=== PATIENT | female | born 1930 | race Caucasian/White ===

== ENCOUNTER 2019-02-22 10:07 | Inpatient (IN) | payer MEDICARE ==
[2019-02-22] VITALS (19 sets, daily range): BP systolic 112–148; BP diastolic 52–79
[~2019-02-22] VITALS: Ht 170.2 cm; Wt 54.6 kg
--- NOTE | 2019-02-22 10:23 | PHYS DOC ---
Adult General Chief Complaint Chief Complaint: SLURRED SPEECH HPI HPI Patient is an 88-year-old female who presents via POV with report of acute onset stroke symptoms at home. 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 They were unable to identify if there were any other strokelike symptoms. At this point patient was brought immediately to the emergency room. Symptom onset was approximately 15 minutes pr ior to her arrival to the emergency room. Patient reportedly has no history of stroke in the past. She has no history of hemorrhagic stroke, recent surgery or gastrointestinal bleeding.[] Review of Systems Review of Systems Constitutional: Denies fever or chills [] Respiratory: Denies cough or shortness of breath [] Cardiovascular: No additional information not addressed in HPI [] Integument: Denies rash or skin lesions [] Neurologic: Positive right sided facial droop and slurred speech [] All other systems were reviewed and found to be within normal limits, except as documented in this note. Current Medications Current Medications Current Medications Medications (Trade) Dose Ordered Sig/Ross Start Time Stop Time Status Last Admin Dose Admin Alteplase, Recombinant 47.8 ml @ 47.8 mls/hr Q1H 02/22/19 11:45 02/22/19 12:44 02/22/19 12:00 47.8 MLS/HR Info (CONTRAST GIVEN -- Rx MONITORING) 1 each PRN DAILY PRN 02/22/19 12:00 02/24/19 11:59 Iohexol (Omnipaque 350 Mg/ml) 60 ml 1X ONCE 02/22/19 12:00 02/22/19 12:01 DC Labetalol HCl (Normodyne Iv Push) 10 mg PRN Q10MIN PRN 02/22/19 11:45 Nicardipine HCl 50 mg/Sodium Chloride 250 ml @ 25 mls/hr CONT PRN PRN 02/22/19 11:45 Sodium Chloride 50 ml @ 0 mls/hr 1X ONCE 02/22/19 11:45 02/22/19 11:46 DC Allergies Allergies Allergies Coded Allergies Type Severity Reaction Last Updated Verified Penicillins Allergy Intermediate 02/22/19 Yes Physical Exam Physical Exam Constitutional: Well developed, well nourished, no acute distress, non-toxic appearance. [] HENT: Normocephalic, atraumatic, bilateral external ears normal, oropharynx moist, no oral exudates, nose normal. [] Eyes: PERRLA, EOMI, conjunctiva normal, no discharge. [] Neck: Normal range of motion, no tenderness, supple, no stridor. [] Cardiovascular: Regular rate and rhythm[] Lungs & Thorax: Bilateral breath sounds clear to auscultation [] Abdomen: Bowel sounds normal, soft, no tenderness. [] Skin: Warm, dry, no erythema, no rash. [] Extremities: No tenderness, no cyanosis, no clubbing, ROM intact, no edema. [] Neurologic: Awake and alert, renal nerves II through XII are reviewed with right sided facial nerve deficit with sparing of forehead. Speech significantly slurred and dysarthric. [] Current Patient Data Vital Signs Vital Signs Date Time Temp Pulse Resp B/P (MAP) Pulse Ox O2 Delivery O2 Flow Rate FiO2 02/22/19 11:26 66 21 110/56 (74) 97 Room Air 02/22/19 10:07 97.7 97.7 Lab Values Laboratory Tests Test 02/22/19 10:12 02/22/19 10:28 02/22/19 10:30 Glucose (Fingerstick) 97 mg/dL (70-99) POC Hemoglobin 11.9 g/dL (12-15) L POC Hematocrit 35 % (36-40) L POC Sodium 139 mmol/L (135-145) POC Potassium 3.8 mmol/L (3.5-5.0) POC Chloride 105 mmol/L (98-110) POC Total CO2 25 mmol/L (23-32) Anion Gap 14 mmol/L (6-14) 5 (6-14) L POC Blood Urea Nitrogen 22 mg/dL (8-26) POC Creatinine 1.2 mg/dL (0.5-1.4) Glucose Level 95 mg/dL (70-99) 101 mg/dL (70-99) H POC Ionized Calcium ([place]na) 1.26 mmol/L (1.13-1.32) White Blood Count 5.3 x10^3/uL (4.0-11.0) Red Blood Count 3.83 x10^6/uL (3.50-5.40) Hemoglobin 12.3 g/dL (12.0-15.5) Hematocrit 36.2 % (36.0-47.0) Mean Corpuscular Volume 95 fL (79-100) Mean Corpuscular Hemoglobin 32 pg (25-35) Mean Corpuscular Hemoglobin Concent 34 g/dL (31-37) Red Cell Distribution Width 13.6 % (11.5-14.5) Platelet Count 141 x10^3/uL (140-400) Prothrombin Time 12.9 SEC (11.7-14.0) Prothrombin Time INR 1.0 (0.8-1.1) Activated Partial Thromboplast Time 26 SEC (24-38) Sodium Level 140 mmol/L (136-145) Potassium Level 3.9 mmol/L (3.5-5.1) Chloride Level 108 mmol/L (98-107) H Carbon Dioxide Level 27 mmol/L (21-32) Blood Urea Nitrogen 21 mg/dL (7-20) H Creatinine 1.3 mg/dL (0.6-1.0) H Estimated GFR (Cockcroft-Gault) 38.8 Calcium Level 9.1 mg/dL (8.5-10.1) Troponin I Quantitative 0.023 ng/mL (0.000-0.055) Laboratory Tests 02/22/19 10:30 Laboratory Tests 02/22/19 10:28 02/22/19 10:30 EKG EKG [] Radiology/Procedures Radiology/Procedures [] Impressions: PROCEDURE: CT CODE STROKE HEAD WO EXAM: Head CT without contrast. HISTORY: Slurred speech. Code stroke. TECHNIQUE: Computed tomographic images of the head were obtained without contrast. *One or more of the following individualized dose reduction techniques were utilized for this examination: 1. Automated exposure control. 2. Adjustment of the mA and/or kV according to patient size. 3. Use of iterative reconstruction technique. COMPARISON: None. FINDINGS: There is no intracranial hemorrhage. There is no mass effect or midline shift. There is moderate ventricular enlargement likely due to cerebral atrophy. There is nonspecific decreased attenuation within the cerebral white matter. This is most commonly due to chronic small vessel disease. The visualized portions the orbits, paranasal sinuses and mastoid air cells are grossly unremarkable. No suspicious calvarial lesion is seen. There is a suspected partially ossified or calcified sebaceous cyst within the right scalp. IMPRESSION: 1. Moderate ventricular enlargement, likely compensatory in the setting of cerebral atrophy. This is not clearly greater than expected for cerebral volume to suggest normal pressure hydrocephalus. 2. Decreased attenuation within the cerebral white matter, likely due to chronic small vessel disease. 3. Note is made that MRI is more sensitive for acute infarction. Findings were discussed with Dr. Antonio in the ED at 1020 hours on 02/22/2019 Electronically signed by: Aaliyah Banks MD (02/22/2019 10:24 AM) [facility] PROCEDURE: CT ANGIOGRAPHY HEAD AND NECK ADDENDUM Addendum: Findings were discussed with Dr. Herr in the ED at 1200 hours on 02/22/2019. Electronically signed by: Aaliyah Banks MD (02/22/2019 12:09 PM) [facility] DICTATED AND SIGNED BY: AALIYAH BANKS MD DATE: 02/22/19 1209 CC: QASIM GRANT MD; TETO HERR Jr. DO ~ EXAM: CT angiogram of the head and neck with intravenous contrast. HISTORY: Cerebral infarction. TECHNIQUE: Computed tomographic images of the head and neck were obtained following the administration of 60 cc Omnipaque 350 intravenous contrast. Three-dimensional maximum intensity projection images were obtained. *One or more of the following individualized dose reduction techniques were utilized for this examination: 1. Automated exposure control. 2. Adjustment of the mA and/or kV according to patient size. 3. Use of iterative reconstruction technique. COMPARISON: Noncontrast head CT obtained on the same date. FINDINGS: There is a large amount of venous contamination predominantly involving the thoracic inlet and left neck, limiting evaluation of the arterial structures in these locations. There is a standard aortic arch branching pattern. There is partially calcified atherosclerotic plaque involving the aorta and proximal aortic arch great vessels. No hemodynamically significant stenosis is seen within the origins and proximal aspects of these vessels. There is suspected calcified atherosclerotic plaque at the origin of the right vertebral artery, resulting in approximate 50 percent stenosis. There is partially calcified atherosclerotic plaque involving the common carotid arteries, carotid bulbs and proximal internal and external carotid arteries. This is associated with less than 25 percent stenosis. There is similar partially calcified atherosclerotic plaque within the cavernous internal carotid arteries with less than 25 percent stenosis. The anterior commuting artery is patent. The anterior, middle and posterior cerebral arteries are patent. There is a patent right posterior commuting indicating artery and suspected absent left posterior communicating artery. The left vertebral artery is slightly dominant. No hemodynamically significant stenosis is seen involving the vertebral or basilar arteries. There is no pneumothorax. There is posterior dependent atelectasis involving both lungs. The airways midline and widely patent. The thyroid and parotid and submandibular glands are unremarkable. There is cerebral volume loss with compensatory enlargement of the ventricles. There are subtle areas of hypodensity within the cerebral white matter, likely due to chronic small vessel disease. There is evidence of lens surgery. There are degenerative changes throughout the cervical spine. This is associated with mild to moderate bilateral foraminal stenosis at C3-C4, mild right foraminal stenosis at C4-C5, and moderate left foraminal stenosis at C5-C6. IMPRESSION: 1. Significantly limited exam due to timing of contrast administration and venous contamination at the thoracic inlet and throughout the left neck. No severe stenosis is seen. There is mild atherosclerotic plaque involving the origin of the right vertebral artery and carotid bifurcations and cavernous internal carotid arteries, described above. 2. Decreased attenuation within the cerebral white matter, a finding which can be seen with chronic small vessel disease. Note is made that MRI is more sensitive for acute infarction. 3. Moderate ventricular enlargement, likely due to cerebral atrophy. This is not clearly within limits to suggest normal pressure hydrocephalus. PQRS Compliance Statement - Stenosis calculations for CT, MR and conventional angiography are based upon measurement of the distal ICA diameter in accordance with the NASCET methodology. Stenosis calculations for carotid ultrasound studies are derived from validated velocity criteria which are known to correlate with the NASCET methodology. Electronically signed by: Aaliyah Banks MD (02/22/2019 12:03 PM) [facility] DICTATED and SIGNED BY: AALIYAH BANKS MD DATE: 02/22/19 1203 Course & Med Decision Making Course & Med Decision Making Pertinent Labs and Imaging studies reviewed. (See chart for details) Patient moved to room upon arrival was evaluated by your medical staff after which an IV was established and blood work drawn. Those stroke was called on patient and patient brought down for code stroke CT head. Initial CT returned unremarkable. NIH stroke scale was completed upon patient arrival back to ER and was found before. Around timing of patient's reading of CT, patient noted to be improving in her speech and facial droop. Approximately 30 minutes later, however, symptoms again worsened and repeat NIH stroke scale was completed with reading of 11. Patient was transferred down for CT angiogram of head and neck at this point. Dr. Henderson was consulted for neurology and she is recommending tPA for this patient. TPA initiated as per protocol and after discussing patient with Dr. Barton, who is on-call for patient's primary care provider, patient admitted to ICU. A total of 40 minutes of critical care time has been spent on this patient exclusive of separately billable procedures and includes direct [id number] time with this patient, discussion of patient's case with consultants and family, ordering and reviewing of both radiologic and laboratory studies, and finally on documentation of this patient's medical record. Dragon Disclaimer Dragon Disclaimer This electronic medical record was generated, in whole or in part, using a voice recognition dictation system. Departure Departure Impression: Primary Impression: CVA (cerebral vascular accident) Disposition: 09 ADMITTED INPATIENT Admitting Physician: Richard Barton Condition: GUARDED Problem Qualifiers Primary Impression: CVA (cerebral vascular accident) CVA mechanism: unspecified Qualified Codes: I63.9 - Cerebral infarction, unspecified TETO HERR Jr. DO Feb 22, 2019 10:23
--- NOTE | 2019-02-22 10:27 | RAD ---
EXAM: Head CT without contrast. HISTORY: Slurred speech. Code stroke. TECHNIQUE: Computed tomographic images of the head were obtained without contrast. *One or more of the following individualized dose reduction techniques were utilized for this examination: 1. Automated exposure control. 2. Adjustment of the mA and/or kV according to patient size. 3. Use of iterative reconstruction technique. COMPARISON: None. FINDINGS: There is no intracranial hemorrhage. There is no mass effect or midline shift. There is moderate ventricular enlargement likely due to cerebral atrophy. There is nonspecific decreased attenuation within the cerebral white matter. This is most commonly due to chronic small vessel disease. The visualized portions the orbits, paranasal sinuses and mastoid air cells are grossly unremarkable. No suspicious calvarial lesion is seen. There is a suspected partially ossified or calcified sebaceous cyst within the right scalp. IMPRESSION: 1. Moderate ventricular enlargement, likely compensatory in the setting of cerebral atrophy. This is not clearly greater than expected for cerebral volume to suggest normal pressure hydrocephalus. 2. Decreased attenuation within the cerebral white matter, likely due to chronic small vessel disease. 3. Note is made that MRI is more sensitive for acute infarction. Findings were discussed with Dr. Antonio in the ED at 1020 hours on 02/22/2019 Electronically signed by: Aaliyah Gray MD (02/22/2019 10:24 AM) [facility]
[2019-02-22 10:35] LABS: CREATININE ISTAT 1.2 mg/dL (0.5-1.4); HEMOGLOBIN ISTAT 11.9 g/dL (12-15); ION CA ISTAT 1.26 mmol/L (1.13-1.32); POTASSIUM ISTAT 3.8 mmol/L (3.5-5.0)
[2019-02-22 10:39] LABS: HEMATOCRIT 36.2 % (36.0-47.0); HEMOGLOBIN 12.3 g/dL (12.0-15.5); RED BLOOD COUNT 3.83 x10^6/uL (3.50-5.40); RED CELL DISTRIBUTION WIDTH 13.6 % (11.5-14.5); WHITE BLOOD COUNT 5.3 x10^3/uL (4.0-11.0)
[2019-02-22 10:47] LABS: PROTHROMBIN TIME PATIENT 12.9 SEC (11.7-14.0)
[2019-02-22 10:50] LABS: CALCIUM 9.1 mg/dL (8.5-10.1); CREATININE 1.3 mg/dL (0.6-1.0); GFR 38.8; POTASSIUM 3.9 mmol/L (3.5-5.1)
[2019-02-22] MEDS ORDERED: IV NORMAL SALINE 1000ML BAG 1,000 ML IV ONE (11:15)
--- NOTE | 2019-02-22 11:23 | EKG ---
[facility] [address] [place] [address] Test Date: 2019-02-22 Test Time: 10:28:00 Pat Name: DIMA ROBLES Department: Room: Gender: F Forming Fixer: : [id number] Requested By: SHEN SOTOMAYOR Order Number: [id number] Reading MD: Moe Weinberg MD Measurements Intervals [place] Rate: 78 P: IA: QRS: -4 QRSD: 90 T: 31 QT: 400 QTc: 459 Interpretive Statements SR NON-SPECIFIC ST/T CHANGES Electronically Signed On 03-03-2019 10:29:46 CDT by Moe Weinberg MD
[2019-02-22] MEDS ORDERED: ALTEPLASE IV ONE (11:45)
[2019-02-22] MEDS ORDERED: LABETALOL 20 MG/4 ML DISP.SYRIN. IVP PRN (11:45)
[2019-02-22] MEDS ORDERED: ALTEPLASE IV SCH (11:45)
[2019-02-22] MEDS ORDERED: IV NORMAL SALINE 50ML 50 ML IV ONE (11:45)
[2019-02-22] MEDS ORDERED: CONTRAST GIVEN. MC PRN (12:00)
[2019-02-22] MEDS ORDERED: IOHEXOL 350 MG/ML 100 ML VIAL. IV ONE (12:00)
--- NOTE | 2019-02-22 12:06 | RAD ---
EXAM: CT angiogram of the head and neck with intravenous contrast. HISTORY: Cerebral infarction. TECHNIQUE: Computed tomographic images of the head and neck were obtained following the administration of 60 cc Omnipaque 350 intravenous contrast. Three-dimensional maximum intensity projection images were obtained. *One or more of the following individualized dose reduction techniques were utilized for this examination: 1. Automated exposure control. 2. Adjustment of the mA and/or kV according to patient size. 3. Use of iterative reconstruction technique. COMPARISON: Noncontrast head CT obtained on the same date. FINDINGS: There is a large amount of venous contamination predominantly involving the thoracic inlet and left neck, limiting evaluation of the arterial structures in these locations. There is a standard aortic arch branching pattern. There is partially calcified atherosclerotic plaque involving the aorta and proximal aortic arch great vessels. No hemodynamically significant stenosis is seen within the origins and proximal aspects of these vessels. There is suspected calcified atherosclerotic plaque at the origin of the right vertebral artery, resulting in approximate 50 percent stenosis. There is partially calcified atherosclerotic plaque involving the common carotid arteries, carotid bulbs and proximal internal and external carotid arteries. This is associated with less than 25 percent stenosis. There is similar partially calcified atherosclerotic plaque within the cavernous internal carotid arteries with less than 25 percent stenosis. The anterior commuting artery is patent. The anterior, middle and posterior cerebral arteries are patent. There is a patent right posterior commuting indicating artery and suspected absent left posterior communicating artery. The left vertebral artery is slightly dominant. No hemodynamically significant stenosis is seen involving the vertebral or basilar arteries. There is no pneumothorax. There is posterior dependent atelectasis involving both lungs. The airways midline and widely patent. The thyroid and parotid and submandibular glands are unremarkable. There is cerebral volume loss with compensatory enlargement of the ventricles. There are subtle areas of hypodensity within the cerebral white matter, likely due to chronic small vessel disease. There is evidence of lens surgery. There are degenerative changes throughout the cervical spine. This is associated with mild to moderate bilateral foraminal stenosis at C3-C4, mild right foraminal stenosis at C4-C5, and moderate left foraminal stenosis at C5-C6. IMPRESSION: 1. Significantly limited exam due to timing of contrast administration and venous contamination at the thoracic inlet and throughout the left neck. No severe stenosis is seen. There is mild atherosclerotic plaque involving the origin of the right vertebral artery and carotid bifurcations and cavernous internal carotid arteries, described above. 2. Decreased attenuation within the cerebral white matter, a finding which can be seen with chronic small vessel disease. Note is made that MRI is more sensitive for acute infarction. 3. Moderate ventricular enlargement, likely due to cerebral atrophy. This is not clearly within limits to suggest normal pressure hydrocephalus. PQRS Compliance Statement - Stenosis calculations for CT, MR and conventional angiography are based upon measurement of the distal ICA diameter in accordance with the NASCET methodology. Stenosis calculations for carotid ultrasound studies are derived from validated velocity criteria which are known to correlate with the NASCET methodology. Electronically signed by: Aaliyah Gray MD (02/22/2019 12:03 PM) [facility]
[2019-02-22] MEDS: IV NORMAL SALINE 1000ML BAG 1,000 ML IV SCH ×2 (12:18→19:47)
--- NOTE | 2019-02-22 15:17 | RAD ---
EXAM: Carotid Doppler sonogram. HISTORY: Cerebral infarction. TECHNIQUE: Santana scale and color Doppler sonographic evaluation of the neck with spectral waveform analysis was performed and static images are submitted for review. FINDINGS: There is mild atherosclerotic plaque within the left greater than right carotid bifurcations. The peak systolic velocity within the right common carotid artery is 74 cm/sec. The peak systolic velocity within the right internal carotid artery is 57 cm/sec and the end diastolic velocity within the right internal carotid artery is 18 cm/sec. The right ICA/CCA ratio is 0.82. The peak systolic velocity within the left common carotid artery is 88 cm/sec. The peak systolic velocity within the left internal carotid artery is 71 cm/sec and the end diastolic velocity within the left internal carotid artery is 16 cm/sec. The left ICA/CCA ratio is 0.86. There is normal antegrade flow within both vertebral arteries. IMPRESSION: No Doppler evidence of hemodynamically significant stenosis within the carotid or vertebral arteries. PQRS Compliance Statement - Stenosis calculations for CT, MR and conventional angiography are based upon measurement of the distal ICA diameter in accordance with the NASCET methodology. Stenosis calculations for carotid ultrasound studies are derived from validated velocity criteria which are known to correlate with the NASCET methodology. Electronically signed by: Aaliyah Gray MD (02/22/2019 3:14 PM) [facility]
--- NOTE | 2019-02-22 15:59 | PDOC2 ---
NEUROLOGY CONSULT Date of Admission Date of Admission DATE: 02/22/19 TIME: 15:45 Reason for Consult Reason for Consult: IMPRESSION: Acute CVA syndrome. Right side facial drooping. Slurred speech. HTN. Cognitive impairment. RECOMMENDATIONS/PLAN: She received TPA on 02/22/19. ASA 24 hours after TPA. Lab: see orders. MRI brain. HISTORY OF THE PRESENT ILLNESS: This is an 88-year-old female who presents via POV with report of acute onset stroke symptoms at home. Per ER, the patient's son reported that patient has history of valve sinus disease and was behaving normally this morning, ate breakfast then shortly after that, family noted that she had a right-sided facial droop and speech was significantly slurred. They were unable to identify if there were any other stroke like symptoms. Her symptom onset was approximately 15 minutes prior to her arrival to the emergency room but her symptoms significantly improved after got here. HCT was performed which did not show acute abnormal changes. However, her symptoms recurred, so TPA was provided after all criteria met and consent obtained. PAST MEDICAL HISTORY: HTN? PAST SURGERY HISTORY: No major surgery recently. ALLERGY: Unknown MEDICATIONS: Refer to [facility] FAMILY HISTORY: Non contributory. SOCIAL HISTORY: Lives with her son at home. Denies smoking, drinking, and illicit drug use. REVIEW OF SYSTEMS: Constitutional: No malnutrition, weight loss, cachexia. Head: No traumatic brain or head injury. Skin: No edema, or rash. Ear: No infection. Eyes: No vision loss or color blindness. Nose: No bleeding or purulent discharges. Hearing: Hearing decrease. Neck: No injury. Breast: No history of cancer, masses,or discharges. Cardiac: HTN. Pulmonary: No COPD. GI: No GI ulcer, GI bleeding. Urinary/genital: UTI. Endocrinologic: No cousin face, craniofacial dysmorphism. Skeletomuscular: No muscular atrophy, deformity. Neurological: see HP. Psychiatric: Denies drug use/abuse. Otherwise, not [id number] review of systems. PHYSICAL EXAMINATION: General appearance is in acute distress. HEENT: Normocephalic and nontraumatic. Eyes, nose, ears, and throat are unre markable. Neck is supple. No lymphadenopathy. No bruits are heard over the carotid artery. No crepitus. Cardiovascular: S1, S2, regular rate and rhythm. Pulmonary: Clear to auscultation bilaterally. Abdomen: Bowel sounds are positive. Abdomen is soft, nontender, and nondistended. Extremities: No rash, lesions, or edema. No restriction of range of motion NEUROLOGICAL EXAMINATION: Alert Not oriented to time, place but knew person. Her speech is within normal. No aphasia or slurred speech at the time of exam, but has partial naming difficulties. PERRL. EOMI. CN: no focal findings. Muscle tone: within normal. Muscle strength: 5 DTR: 2+ Plantar reflex: Flexor response bilaterally Gait: not examined in bed. Sensory exam: no abnormal findings. No cerebellar signs elicited. F-T-N test fine. Current Medications Current Medications Current Medications Sodium Chloride 1,000 ml @ 125 mls/hr 1X ONCE IV Last administered on 02/22/19at 11:25; Start 02/22/19 at 11:15; Stop 02/22/19 at 19:14 Alteplase, Recombinant 5.3 ml @ 318 mls/hr 1X ONCE IV Last administered on 02/22/19at 11:58; Start 02/22/19 at 11:45; Stop 02/22/19 at 11:46; Status DC Alteplase, Recombinant 47.8 ml @ 47.8 mls/hr Q1H IV Last administered on 02/22/19at 12:00; Start 02/22/19 at 11:45; Stop 02/22/19 at 12:44; Status DC Sodium Chloride 50 ml @ 0 mls/hr 1X ONCE IV Last administered on 02/22/19at 12:58; Start 02/22/19 at 11:45; Stop 02/22/19 at 11:46; Status DC Labetalol HCl (Normodyne Iv Push) 10 mg PRN Q10MIN PRN IVP HYPERTENSION; Start 02/22/19 at 11:45 Nicardipine HCl 50 mg/Sodium Chloride 250 ml @ 25 mls/hr CONT PRN PRN IV HYPERTENSION; Start 02/22/19 at 11:45 Iohexol (Omnipaque 350 Mg/ml) 60 ml 1X ONCE IV ; Start 02/22/19 at 12:00; Stop 02/22/19 at 12:01; Status DC Info (CONTRAST GIVEN -- Rx MONITORING) 1 each PRN DAILY PRN MC SEE COMMENTS; Start 02/22/19 at 12:00; Stop 02/24/19 at 11:59 Sodium Chloride 1,000 ml @ 100 mls/hr Q10H IV Last administered on 02/22/19at 12:18; Start 02/22/19 at 12:18; Stop 02/23/19 at 12:17 Allergies Allergies: Allergies Coded Allergies Type Severity Reaction Last Updated Verified Penicillins Allergy Intermediate 02/22/19 Yes ROS Review of System The patient denies any associated fevers, chills, headache, ear pain, rhinorrhea, sore throat, stiff neck, productive cough, chest pain, shortness of breath, back or flank pain, abdominal pain, nausea, vomiting, diarrhea, constipation, dysuria, rash, numbness, weakness, tingling, incontinence, difficulty ambulating, or diaphoresis. Physical Exam Physical Exam General: Well developed, well nourished, no acute distress, well appearing HEENT: Pupils equally round and reactive to light, EOMI, no discharge, normal conjunctiva Neck: Supple, no nuchal rigidity, no JVD, trachea midline, no tenderness Cardiac: RRR, no murmurs, no gallops, no rubs Chest/Lungs: CTAB, no wheeze, no rhonchi, no crackles Abdomen: soft, non-distended, no guarding, no peritoneal signs, non-tender Back: No tenderness Extremities: no edema, pulses intact, non-tender,capillary refill <3 sec bilateral upper and lower extremities, Neuro: Alert and oriented x 4, no focal deficits, normal speech Vitals Vitals: Vital Signs Date Time Temp Pulse Resp B/P (MAP) Pulse Ox O2 Delivery O2 Flow Rate FiO2 02/22/19 15:30 66 16 146/62 (90) 98 Room Air 02/22/19 13:45 98.2 98.2 Labs Labs Laboratory Tests Test 02/22/19 10:12 02/22/19 10:28 02/22/19 10:30 Glucose (Fingerstick) 97 mg/dL (70-99) Bedside Hemoglobin 11.9 g/dL (12-15) Bedside Hematocrit 35 % (36-40) Bedside Sodium 139 mmol/L (135-145) Bedside Potassium 3.8 mmol/L (3.5-5.0) Bedside Chloride 105 mmol/L (98-110) Bedside Total CO2 25 mmol/L (23-32) Anion Gap 14 mmol/L (6-14) 5 (6-14) Bedside Blood Urea Nitrogen 22 mg/dL (8-26) Bedside Creatinine 1.2 mg/dL (0.5-1.4) Glucose Level 95 mg/dL (70-99) 101 mg/dL (70-99) Bedside Ionized Calcium (Lorena) 1.26 mmol/L (1.13-1.32) White Blood Count 5.3 x10^3/uL (4.0-11.0) Red Blood Count 3.83 x10^6/uL (3.50-5.40) Hemoglobin 12.3 g/dL (12.0-15.5) Hematocrit 36.2 % (36.0-47.0) Mean Corpuscular Volume 95 fL (79-100) Mean Corpuscular Hemoglobin 32 pg (25-35) Mean Corpuscular Hemoglobin Concent 34 g/dL (31-37) Red Cell Distribution Width 13.6 % (11.5-14.5) Platelet Count 141 x10^3/uL (140-400) Prothrombin Time 12.9 SEC (11.7-14.0) Prothromb Time International Ratio 1.0 (0.8-1.1) Activated Partial Thromboplast Time 26 SEC (24-38) Sodium Level 140 mmol/L (136-145) Potassium Level 3.9 mmol/L (3.5-5.1) Chloride Level 108 mmol/L (98-107) Carbon Dioxide Level 27 mmol/L (21-32) Blood Urea Nitrogen 21 mg/dL (7-20) Creatinine 1.3 mg/dL (0.6-1.0) Estimated GFR (Cockcroft-Gault) 38.8 Calcium Level 9.1 mg/dL (8.5-10.1) Troponin I Quantitative 0.023 ng/mL (0.000-0.055) Thyroid Stimulating Hormone (TSH) 1.946 uIU/mL (0.358-3.74) Laboratory Tests Test 02/22/19 10:12 02/22/19 10:28 02/22/19 10:30 Glucose (Fingerstick) 97 mg/dL (70-99) Bedside Hemoglobin 11.9 g/dL (12-15) Bedside Hematocrit 35 % (36-40) Bedside Sodium 139 mmol/L (135-145) Bedside Potassium 3.8 mmol/L (3.5-5.0) Bedside Chloride 105 mmol/L (98-110) Bedside Total CO2 25 mmol/L (23-32) Anion Gap 14 mmol/L (6-14) 5 (6-14) Bedside Blood Urea Nitrogen 22 mg/dL (8-26) Bedside Creatinine 1.2 mg/dL (0.5-1.4) Glucose Level 95 mg/dL (70-99) 101 mg/dL (70-99) Bedside Ionized Calcium (Lorena) 1.26 mmol/L (1.13-1.32) White Blood Count 5.3 x10^3/uL (4.0-11.0) Red Blood Count 3.83 x10^6/uL (3.50-5.40) Hemoglobin 12.3 g/dL (12.0-15.5) Hematocrit 36.2 % (36.0-47.0) Mean Corpuscular Volume 95 fL (79-100) Mean Corpuscular Hemoglobin 32 pg (25-35) Mean Corpuscular Hemoglobin Concent 34 g/dL (31-37) Red Cell Distribution Width 13.6 % (11.5-14.5) Platelet Count 141 x10^3/uL (140-400) Prothrombin Time 12.9 SEC (11.7-14.0) Prothromb Time International Ratio 1.0 (0.8-1.1) Activated Partial Thromboplast Time 26 SEC (24-38) Sodium Level 140 mmol/L (136-145) Potassium Level 3.9 mmol/L (3.5-5.1) Chloride Level 108 mmol/L (98-107) Carbon Dioxide Level 27 mmol/L (21-32) Blood Urea Nitrogen 21 mg/dL (7-20) Creatinine 1.3 mg/dL (0.6-1.0) Estimated GFR (Cockcroft-Gault) 38.8 Calcium Level 9.1 mg/dL (8.5-10.1) Troponin I Quantitative 0.023 ng/mL (0.000-0.055) Thyroid Stimulating Hormone (TSH) 1.946 uIU/mL (0.358-3.74) ASH BARNES MD Feb 22, 2019 15:59
[2019-02-22 17:58] LABS: BILIRUBIN,URINE NEGATIVE (NEG); CLARITY,URINE CLEAR; COLOR,URINE YELLOW; NITRITE,URINE NEGATIVE (NEG); PROTEIN,URINE NEGATIVE (NEG-TRACE); UROBILINOGEN,URINE 0.2 mg/dL (0.2 mg/dL)
[2019-02-22 18:07] LABS: BACTERIA,URINE 0 /HPF (0-FEW); RBC,URINE 0 /HPF (0-2); WBC,URINE OCC /HPF (0-4)
[2019-02-23] VITALS (19 sets, daily range): BP systolic 115–164; BP diastolic 60–97
[2019-02-23 05:47] LABS: CHOLESTEROL/HDL RATIO 2.8
[2019-02-23] MEDS: IV NORMAL SALINE 1000ML BAG 1,000 ML IV SCH (06:07)
[2019-02-23] MEDS ORDERED: OMEP20CA10 PO (08:54)
[2019-02-23] MEDS ORDERED: MEMA10TA PO (08:54)
[2019-02-23] MEDS ORDERED: MELO15TA23 PO (08:54)
[2019-02-23] MEDS ORDERED: DONE5TAB7 PO (08:54)
--- NOTE | 2019-02-23 09:16 | PDOC ---
Provider Note Provider Note dictated MICKY LUNA MD Feb 23, 2019 09:16
--- NOTE | 2019-02-23 09:44 | HP ---
ADMIT DATE: 02/23/2019 CHIEF COMPLAINT: Stroke. HISTORY OF PRESENT ILLNESS: The patient has a history of Alzheimer's dementia and came in with aphasia and right-sided weakness. CT was normal. CTA was done as well and then because of persistent and recurring stroke symptoms, TPA was given. She markedly improved after that and is more or less back to her baseline state, according to her son. She is in the ICU on IV fluids at this time. Speech therapy is pending. No past history of prior CVA, atrial fibrillation or any other obvious risk factors for stroke and she does not take aspirin or any anticoagulants. PAST MEDICAL HISTORY: Well documented in the old chart. MEDICATIONS: No new meds except for dementia meds. ALLERGIES: No known drug allergies or serious medical problems. SOCIAL HISTORY: Lives with family. She has underlying dementia. Nonsmoker, nondrinker. She is disabled. FAMILY HISTORY: Unremarkable. REVIEW OF SYSTEMS: No other complaints. OBJECTIVE: ENT: All within normal limits. Speech is normal for her. No cranial nerve deficits are seen. NECK: Revealed no carotid bruits, nodes or thyroid enlargement. LUNGS: Clear, without tachypnea. CARDIOVASCULAR: Regular rate. No atrial fibrillation. No murmur. ABDOMEN: Soft, benign and nontender. EXTREMITIES: Reasonably good pedal and radial pulses. No joint or skin lesions. NEUROLOGIC: She moves all extremities, particularly the right arm well. Speech is normal, but her mental status is consistent with dementia. Speech is not purposeful. ASSESSMENT: 1. Acute cerebrovascular accident markedly improved with TPA. 2. Underlying Alzheimer dementia. PLAN: DNR per son's request. We will add aspirin prophylaxis. Check the echo on the carotids. MICKY LUNA MD DR: MALACHI/steffany JOB#: [id number] / [id number]
--- NOTE | 2019-02-23 11:24 | NUR ---
SS following for discharge planning. SS reviewed pt chart. Pt is from home and is currently on room air. PT/OT/ST ordered for evaluation and recommendations. SS will continue to follow for discharge planning.
[2019-02-23] MEDS: PANTOPRAZOLE 40 MG TABLET.DR. PO SCH (11:52)
[2019-02-23] MEDS: ASPIRIN 325 MG TABLET PO SCH (11:52)
[2019-02-23] MEDS: MEMANTINE 10 MG TABLET. PO SCH ×2 (11:52→20:53)
--- NOTE | 2019-02-23 15:43 | RAD ---
MRI of the brain without contrast 02/23/2019 Clinical History: Right facial droop and slurred speech. Technique: Unenhanced T1-weighted sagittal and axial, T2-weighted axial and coronal and FLAIR, gradient echo and diffusion-weighted axial images of the brain were obtained. Findings: Comparison is made to the patient's CT scan of the head dated 02/22/2019. Images from the study are degraded by patient motion. There is generalized parenchymal atrophy. Patchy, confluent and multiple small focal areas of increased signal intensity are seen within the periventricular and subcortical white matter of both cerebral hemispheres along with the cerebellar white matter janelle on the FLAIR and T2-weighted images consistent with areas of small vessel ischemic disease. Small old areas of infarction are seen involving the right cerebellar hemisphere. These measure 3 mm to 1 cm in size. A 4 mm area of restricted diffusion is seen involving the anterior left parietal lobe. This is consistent with an area of acute ischemia/infarction. There is mild surrounding edema without evidence of significant mass effect. No additional acute parenchymal abnormality is seen. No extra-axial fluid collection is noted. Mild mucosal thickening in seen scattered throughout the paranasal sinuses. There is a minimal left mastoid effusion. Normal flow voids are seen within the major vascular structures surrounding the brain parenchyma. A 2 cm partially calcified benign-appearing scalp lesion is seen involving the right frontal parietal scalp, superiorly. Impression: 4 mm area of acute ischemia/infarction is seen involving left parietal lobe. There is mild surrounding edema without evidence of significant mass effect. The patient's nurse was notified of this finding. FOR INTERNAL CODING PURPOSES RESULT CODE: (C) Electronically signed by: Akshat Dailey MD (02/23/2019 3:40 PM) [id number]
--- NOTE | 2019-02-23 16:50 | PDOC ---
PROGRESS NOTES Assessment Assessment Acute left parietal 4 mm infarct. Right side facial drooping. Slurred speech. HTN. Cognitive impairment. RECOMMENDATIONS/PLAN: She received TPA on 02/22/19. ASA 325 mg daily started 24 hours after TPA. Treat medical diseases. HISTORY OF THE PRESENT ILLNESS: This is an 88-year-old female who presents via POV with report of acute onset stroke symptoms at home. Per ER, the patient's son reported that patient has history of valve sinus disease and was behaving normally this morning, ate breakfast then shortly after that, family noted that she had a right-sided facial droop and speech was significantly slurred. They were unable to identify if there were any other stroke like symptoms. Her symptom onset was approximately 15 minutes prior to her arrival to the emergency room but her symptoms significantly improved after got here. HCT was performed which did not show acute abnormal changes. However, her symptoms recurred, so TPA was provided after all criteria met and consent obtained. PAST MEDICAL HISTORY: HTN? PAST SURGERY HISTORY: No major surgery recently. ALLERGY: Unknown MEDICATIONS: Refer to [facility] FAMILY HISTORY: Non contributory. SOCIAL HISTORY: Lives with her son at home. Denies smoking, drinking, and illicit drug use. REVIEW OF SYSTEMS: Constitutional: No malnutrition, weight loss, cachexia. Head: No traumatic brain or head injury. Skin: No edema, or rash. Ear: No infection. Eyes: No vision loss or color blindness. Nose: No bleeding or purulent discharges. Hearing: Hearing decrease. Neck: No injury. Breast: No history of cancer, masses,or discharges. Cardiac: HTN. Pulmonary: No COPD. GI: No GI ulcer, GI bleeding. Urinary/genital: UTI. Endocrinologic: No cousin face, craniofacial dysmorphism. Skeletomuscular: No muscular atrophy, deformity. Neurological: see HP. Psychiatric: Denies drug use/abuse. Otherwise, not [id number] review of systems. PHYSICAL EXAMINATION: General appearance is in subacute distress. HEENT: Normocephalic and nontraumatic. Eyes, nose, ears, and throat are unremarkable. Neck is supple. No lymphadenopathy. No bruits are heard over the carotid artery. No crepitus. Cardiovascular: S1, S2, regular rate and rhythm. Pulmonary: Clear to auscultation bilaterally. Abdomen: Bowel sounds are positive. Abdomen is soft, nontender, and nondistended. Extremities: No rash, lesions, or edema. No restriction of range of motion NEUROLOGICAL EXAMINATION: Alert Not oriented to time, place but knew person. Her speech is within normal. No aphasia or slurred speech at the time of exam, but has partial naming difficulties. PERRL. EOMI. CN: no focal findings. Muscle tone: within normal. Muscle strength: 5 DTR: 2+ Plantar reflex: Flexor response bilaterally Gait: not examined in bed. Sensory exam: no abnormal findings. No cerebellar signs elicited. F-T-N test fine. Objective Objective Vital Signs Date Time Temp Pulse Resp B/P (MAP) Pulse Ox O2 Delivery O2 Flow Rate FiO2 02/23/19 16:03 Room Air 02/23/19 16:00 95 150/97 (114) 02/23/19 15:00 98.0 18 97 98.0 Intake and Output 02/23/19 07:00 Intake Total 1922.8 ml Output Total 1575 ml Balance 347.8 ml Intake Oral 0 ml IV Total 1922.8 ml Output Urine Total 1575 ml Vitals Signs Vitals VS - Last 72 Hours, by Label Date Time Temp Pulse Resp B/P (MAP) Pulse Ox O2 Delivery O2 Flow Rate FiO2 02/23/19 16:03 Room Air 02/23/19 16:00 95 150/97 (114) 02/23/19 15:00 98.0 70 18 115/68 (84) 97 Room Air 98.0 02/23/19 14:00 87 118/65 (82) 02/23/19 13:37 78 20 132/67 (88) 97 Room Air 02/23/19 12:00 Room Air 02/23/19 11:00 98.3 81 22 128/69 (88) 97 Room Air 98.3 02/23/19 10:00 77 22 135/68 (90) Room Air 02/23/19 08:00 Room Air 02/23/19 08:00 77 140/79 (99) 02/23/19 07:00 98.8 75 22 142/63 (89) 97 Room Air 98.8 02/23/19 06:01 78 21 151/63 (92) 99 Room Air 02/23/19 05:00 75 164/74 (104) 98 Room Air 02/23/19 04:02 98.1 74 16 158/68 (98) 99 98.1 02/23/19 03:00 75 20 161/77 (105) 99 Room Air 02/23/19 02:00 74 20 158/74 (102) 98 Room Air 02/23/19 01:00 70 21 140/67 (91) 98 Room Air 02/22/19 23:00 65 17 141/65 (90) 99 Room Air 02/22/19 22:00 65 16 134/74 (94) 97 02/22/19 21:00 66 19 148/64 (92) 98 02/22/19 20:00 98.0 68 18 133/79 (97) 97 Room Air 98.0 02/22/19 19:00 74 17 134/78 (96) 97 Room Air 02/22/19 18:00 73 16 144/77 (99) 99 Room Air 02/22/19 17:31 71 16 136/68 (90) 98 Room Air 02/22/19 17:00 69 15 142/69 (93) 98 Room Air 02/22/19 16:30 74 16 112/53 (72) 94 Room Air 02/22/19 16:00 69 16 119/61 (80) 98 Room Air 02/22/19 15:45 66 15 141/67 (91) 95 Room Air 02/22/19 15:30 66 16 146/62 (90) 98 Room Air 02/22/19 15:15 71 16 142/75 (97) 99 Room Air 02/22/19 15:00 69 14 124/63 (83) 99 Room Air 02/22/19 14:45 71 16 135/59 (84) 98 Room Air 02/22/19 14:30 73 16 131/59 (83) 98 Room Air 02/22/19 14:15 75 16 121/55 (77) 98 Room Air 02/22/19 14:00 71 16 137/59 (85) 98 Room Air 02/22/19 13:45 98.2 68 18 118/52 (74) 100 Room Air 98.2 02/22/19 13:26 72 19 124/76 (92) 95 Room Air 02/22/19 13:11 72 16 140/60 (86) 100 Room Air 02/22/19 12:56 78 17 116/72 (87) 100 Room Air 02/22/19 12:41 70 158/62 (94) 100 Room Air 02/22/19 12:26 19 134/61 (85) 98 Room Air 02/22/19 12:11 66 25 114/79 (91) 94 Room Air 02/22/19 11:56 66 22 120/66 (84) Room Air 02/22/19 11:48 119/53 (75) Room Air 02/22/19 11:26 66 21 110/56 (74) 97 Room Air 02/22/19 11:11 66 20 101/46 (64) 98 Room Air 02/22/19 10:56 64 16 101/50 (67) 100 Room Air 02/22/19 10:41 68 24 116/61 (79) 97 Room Air 02/22/19 10:07 97.7 68 24 117/57 (77) 97 Room Air 97.7 Laboratory Laboratory Laboratory Tests Test 02/23/19 04:45 Triglycerides Level 68 mg/dL (0-150) Cholesterol Level 147 mg/dL (0-200) LDL Cholesterol, Calculated 81 mg/dL (0-100) VLDL Cholesterol, Calculated 14 mg/dL (0-40) Non-HDL Cholesterol Calculated 95 mg/dL (0-129) HDL Cholesterol 52 mg/dL (40-60) Cholesterol/HDL Ratio 2.8 Medication Medications Current Medications Aspirin (Cristy Aspirin) 325 mg DAILYWBKFT PO Last administered on 02/23/19at 11:52; Start 02/23/19 at 10:00 Donepezil HCl (Aricept) 5 mg HS PO ; Start 02/23/19 at 21:00 Memantine (Namenda) 10 mg BID PO Last administered on 02/23/19at 11:52; Start 02/23/19 at 09:00 Pantoprazole Sodium (Protonix) 40 mg DAILYAC PO Last administered on 02/23/19at 11:52; Start 02/23/19 at 10:00 Comment Review of Relevant I have reviewed the following items cristina (where applicable) has been applied. ASH BARNES MD Feb 23, 2019 16:50
[2019-02-23] MEDS ORDERED: DONEPEZIL HCL 5 MG TABLET. PO SCH (21:00)
[2019-02-24 04:00] VITALS: BP 141/66
[2019-02-24] MEDS: PANTOPRAZOLE 40 MG TABLET.DR. PO SCH (07:51)
[2019-02-24] MEDS: MEMANTINE 10 MG TABLET. PO SCH (07:52)
[2019-02-24] MEDS: ASPIRIN 325 MG TABLET PO SCH (07:53)
[2019-02-24 08:00] VITALS: BP 147/72
--- NOTE | 2019-02-24 09:15 | PDOC ---
Provider Note Provider Note [id number] MICKY LUNA MD Feb 24, 2019 09:15
--- NOTE | 2019-02-24 09:20 | CARD ---
MR#: [id number] Date of Study: 02/23/2019 Ordering Physician: ASH BARNES, Referring Physician: ASH BARNES, Tech: Sonya Lezama RDCS APPROVED REPORT EXAM: Two-dimensional and M-mode echocardiogram with Doppler and color Doppler. Other Information Quality : Good INDICATION CVA/TIA 2D DIMENSIONS RVDd3.2 (2.9-3.5cm)Left Atrium(2D)3.9 (1.6-4.0cm) IVSd1.0 (0.7-1.1cm)Aortic Root(2D)2.9 (2.0-3.7cm) LVDd3.8 (3.9-5.9cm)LVOT Diameter2.0 (1.8-2.4cm) PWd0.8 (0.7-1.1cm)LVDs2.6 (2.5-4.0cm) FS (%) 31.5 %SV37.9 ml LVEF(%)60.1 (>50%) Aortic Valve AoV Peak Clayton.111.6cm/sAoV VTI21.1cm AO Peak GR.5.0mmHgLVOT VTI 20.53cm AO Mean GR.3mmHgAVA (VTI)3.00cm2 Mitral Valve MV E Pieivqpn07.1cm/sMV DECEL KHAI084sk MV A Qxybcjdo948.8cm/sE/A Ratio0.7 TDI Lateral E' P. V7.72cm/sMedial E' P. V5.34cm/s E/Lateral E'11.5E/Medial E'16.7 Tricuspid Valve TR P. Pnwstvkh131fs/sRAP MVRMLZKM7apDh TR Peak Gr.21ijOeHVZH04poXb Pulmonary Vein S1 Mgyzinax08.5cm/sS2 Ycxnwcqi63.38cm/s D2 Isohobfb11.4cm/s LEFT VENTRICLE The left ventricle is normal size. There is normal left ventricular wall thickness. The left ventricu lar systolic function is normal and the ejection fraction is within normal range. The Ejection Fracti on is 55-60%. Septal motion consistent with conduction abnormality. Otherwise normal wall motion. Tra nsmitral Doppler flow pattern is Grade I-abnormal relaxation pattern. RIGHT VENTRICLE The right ventricle is normal size. The right ventricular systolic function is normal. ATRIA The left atrium size is normal. The right atrium size is normal. The interatrial septum is intact wit h no evidence for an atrial septal defect or patent foramen ovale as noted on 2-D or Doppler imaging. AORTIC VALVE The aortic valve is calcified but opens well. Doppler and Color Flow revealed no significant aortic r egurgitation. There is no significant aortic valvular stenosis. MITRAL VALVE The mitral valve is calcified but opens well. Mitral annular calcification is mild to moderate. There is no evidence of mitral valve prolapse. There is no mitral valve stenosis. Doppler and Color-flow r evealed trace to mild mitral regurgitation. TRICUSPID VALVE The tricuspid valve is normal in structure and function. Doppler and Color Flow revealed trace tricus pid regurgitation. The PA pressure was estimated at 27 mmHg. There is no tricuspid valve stenosis. PULMONIC VALVE Doppler and Color Flow revealed mild pulmonic valvular regurgitation. There is no pulmonic valvular s tenosis. GREAT VESSELS The aortic root is normal in size. The ascending aorta is mildly dilated at 3.7 cm. The IVC is normal in size and collapses >50% with inspiration. PERICARDIAL EFFUSION There is no evidence of significant pericardial effusion. Critical Notification Critical Value: No <Conclusion> The left ventricular systolic function is normal and the ejection fraction is within normal range. Th e Ejection Fraction is 55-60%. Septal motion consistent with conduction abnormality. Otherwise normal wall motion. The ascending aorta is mildly dilated at 3.7 cm. Signed by : Moe Weinberg, Electronically Approved : 02/23/2019 13:47:34
--- NOTE | 2019-02-24 09:28 | DS ---
DATE OF DISCHARGE: 02/24/2019 HOSPITAL SUMMARY: This is an 88-year-old white female with a history of dementia who came in with left-sided stroke symptoms including some aphasia and right-sided weakness. She initially improved in the ER, then got worse and CT scan of the head showed no lesions and CT angio of the neck showed no specific lesions. She was given TPA and markedly improved after that and has remained neurologically more or less intact since that time. Carotid Doppler study showed no evidence of hemodynamically significant lesion and an echocardiogram is pending at this time. MRI of the brain showed a 4 mm acute infarct in the left parietal lobe only with mild surrounding edema. LABORATORY STUDY: Showed a normal CBC and chemistry profile, lipid profile with cholesterol 147 and LDL 81. TSH and B12 levels were normal and urine was clear. She was started on aspirin after the TPA was completed and she is neurologically intact now and her dementia is stable. Son is comfortable that he can take her home. She has been living with him for the last 2 weeks. FINAL DIAGNOSES: 1. Acute cerebrovascular accident of the left parietal lobe, improved with TPA. 2. Stable Alzheimer dementia. OPERATIONS, PROCEDURES, COMPLICATIONS: None. CONSULTATIONS: Dr. Henderson. DISPOSITION: We will add aspirin 81 mg daily to her current medical regimen. She remains a DNR, comfort care patient, given her dementia and all other medicines remain the same and follow up with Dr. Tsang in 1-2 weeks or as needed. MICKY LUNA MD DR: MALACHI/steffany JOB#: [id number] / [id number]
--- NOTE | 2019-02-24 10:24 | NUR ---
[id number] No overt residual form stroke. Alzheimer Dementia present prior to admit w conversation variance/disconnect already there. Speech clear but sometimes w/o organized ,understandable "flow" during conversation. Amb in [place] nurse standby prior to discharge. Tolerated well ,stable on feet.Am appointment w PCP Dr Sheehan . Mehrdad-son- will clarify ASA dosage and statins per Dr Barton.s request. All meds taken prior to discharge. Printed stroke information provide as well as printed discharge meds. Assist dress per OT. To car per w/c,home w son . Condition stable/improved. NOTE will get flu and pneumonia shot at office on visit
== END 2019-02-24 10:10 | disposition home or self-care (01) | DRG 62 ==
LOC: ER 10:07 → 1 WEST ICU 12:13
PROVIDERS: ADMIT Family Medicine; ATTEND Family Medicine
DX: I63.9 Cerebral infarction, unspecified (principal); G81.91 Hemiplegia, unspecified affecting right dominant side; R64 Cachexia; Z68.1 Body mass index [BMI] 19.9 or less, adult; R47.01 Aphasia; R29.810 Facial weakness; F02.80 Dementia in other diseases classified elsewhere, unspecified severity, without behavioral disturbance, psychotic disturbance, mood disturbance, and anxiety; G30.9 Alzheimer's disease, unspecified; I10 Essential (primary) hypertension; Z66 Do not resuscitate; Z51.5 Encounter for palliative care; Z79.82 Long term (current) use of aspirin; Z88.0 Allergy status to penicillin
CPT/HCPCS: 36415; 37195; 70450; 70496; 70498; 70551; 80047; 80048; 80061; 81001; 82607; 82962; 84443; 84484; 85027; 85610; 85730; 93005; 93306; 93880; 96360; J2997; J7030; 92610; 99291-25; G0378